=== PATIENT | male | born 1955 | race African-American/Black ===

== ENCOUNTER 2024-04-10 08:29 | Outpatient (CLI) | payer MEDICARE, SELFPAY ==
--- NOTE | ~2024-04-10 | MR_ITS ---
EXAMINATION: MR brain/brain stem wo/w con DATE: 04/10/2024 09:32 INDICATION: Multiple sclerosis. TECHNIQUE: Magnetic resonance imaging (MRI) of the brain and brainstem was performed without and with 20 mL MultiHance intravenous contrast. COMPARISON: Head CT 08/26/2008 FINDINGS: There are multiple lesions of increased T2-weighted signal intensity in the cerebral white matter with a periventricular predominance. There are lesions of increased T2-weighted signal intensi ty in the right cerebral peduncle and cervical spinal cord. None of the lesions enhance. There is no ischemic infarct or intracranial hemorrhage. The ventricles are normal in size. There is mucosal thickening in the paranasal sinuses. The orbits are normal. The mastoid air cells are normal. IMPRESSION: 1. Lesions in the cerebral white matter, right cerebral peduncle, and cervical spinal cord, consisten t with multiple sclerosis. Reviewed, dictated and finalized at location A. [facility] IMPRESSION: 1. Lesions in the cerebral white matter, right cerebral peduncle, and cervical spinal cord, consistent with multiple sclerosis.
== END 2024-04-10 08:30 | disposition home or self-care (01) ==
LOC: MICIMG 08:30
DX: G35 Multiple sclerosis (principal)
CPT/HCPCS: 70553; A9577